=== PATIENT | male | born 1955 | race Caucasian/White ===

== ENCOUNTER → 2021-10-05 | Outpatient (REF) | payer MEDICARE, OTHER ==
[2021-10-05 13:46] LABS: CK-MB VALUE MASS 1.3 NG/ML (<3.6); MB/CK RELATIVE INDEX 1.26 (< OR =4)
== END ==
LOC: M LAB REF 11:29
PROVIDERS: ATTEND Internal Medicine
DX: R07.9 Chest pain, unspecified (principal)

== ENCOUNTER → 2022-08-02 | Outpatient (REF) | payer MEDICARE, OTHER | LOC: M SFHCDERM 17:36 | PROVIDERS: ATTEND Physician Assistant | DX: L85.8 Other specified epidermal thickening (principal) | CPT/HCPCS: 11102; 88305; G0463 ==

== ENCOUNTER → 2022-08-09 | Outpatient (REF) | payer MEDICARE, OTHER | LOC: M SFHCDERM 17:49 | PROVIDERS: ATTEND Physician Assistant | DX: C44.319 Basal cell carcinoma of skin of other parts of face (principal) | CPT/HCPCS: 11104; 88305; G0463 ==

== ENCOUNTER → 2024-01-08 | Outpatient (CLI) | payer MEDICARE, OTHER | LOC: M RAD 09:31 | PROVIDERS: ATTEND Internal Medicine | DX: I73.9 Peripheral vascular disease, unspecified (principal); M79.604 Pain in right leg ==

== ENCOUNTER → 2024-01-18 | Outpatient (REF) | payer MEDICARE, OTHER | LOC: M LAB REF 11:56 | PROVIDERS: ATTEND Physician Assistant Medical | DX: N39.0 Urinary tract infection, site not specified (principal) ==

== ENCOUNTER → 2024-05-02 | Outpatient (REF) | payer MEDICARE, OTHER | LOC: M LAB REF 16:23 | PROVIDERS: ATTEND Internal Medicine | DX: N39.0 Urinary tract infection, site not specified (principal) ==